=== PATIENT | female | born 1980 | race Caucasian/White ===

== ENCOUNTER 2020-09-20 10:19 | Outpatient (CLI) | payer OTHER | END 2020-09-20 10:21 | disposition home or self-care (01) | LOC: RX STUDY 10:19 | PROVIDERS: ATTEND Obstetrics & Gynecology Reproductive Endocrinology | DX: Q50.6 Other congenital malformations of fallopian tube and broad ligament (principal); N93.9 Abnormal uterine and vaginal bleeding, unspecified; N91.2 Amenorrhea, unspecified ==

== ENCOUNTER 2023-04-29 10:04 | Outpatient (CLI) | payer OTHER | END 2023-04-29 10:33 | disposition home or self-care (01) | LOC: NST 10:04 | PROVIDERS: ATTEND Obstetrics & Gynecology Maternal & Fetal Medicine | DX: Z34.83 Encounter for supervision of other normal pregnancy, third trimester (principal) ==

== ENCOUNTER 2023-06-08 09:41 | Outpatient (CLI) | payer OTHER ==
[2023-06-08] MEDS ORDERED: CHILDREN'S ASPI81 MG PO (14:09)
[2023-06-08] MEDS ORDERED: OBTREX DHA COM1 EACH PO (14:09)
[2023-06-08] MEDS ORDERED: FOLIC ACID0.8 M1 PO (14:10)
[2023-06-08] MEDS ORDERED: OMEGA-31000 MG PO (14:10)
[2023-06-08] MEDS ORDERED: MAGNESIUM250 MG PO (14:10)
== END 2023-06-08 11:30 | disposition home or self-care (01) ==
LOC: NST 09:41
PROVIDERS: ATTEND Obstetrics & Gynecology Maternal & Fetal Medicine
DX: Z34.83 Encounter for supervision of other normal pregnancy, third trimester (principal)

== ENCOUNTER 2023-06-08 12:58 | Inpatient (IN) | payer OTHER ==
[~2023-06-08] VITALS: Ht 177.8 cm; Wt 101.6 kg
[2023-06-08 14:01] LABS: HEMATOCRIT 36.5 % (36.0-45.00); MEAN CELL VOLUME 87.3 fL (80.00-100.00); MEAN CORPUSCULAR HEMOGLOBIN 28.7 pg (27.00-32.0); MEAN CORPUSCULAR HGB CONC 32.9 g/dl (32.0-36.0); PLATELET COUNT 224 K/uL (150-450); RED BLOOD COUNT 4.18 M/uL (4.00-6.00); RED CELL DISTRIBUTION WIDTH 13.7 % (11.5-14.5)
[2023-06-08] MEDS ORDERED: CHILDREN'S ASPI81 MG PO (14:09)
[2023-06-08] MEDS ORDERED: OBTREX DHA COM1 EACH PO (14:09)
[2023-06-08] MEDS ORDERED: FOLIC ACID0.8 M1 PO (14:10)
[2023-06-08] MEDS ORDERED: OMEGA-31000 MG PO (14:10)
[2023-06-08] MEDS ORDERED: MAGNESIUM250 MG PO (14:10)
[2023-06-08 14:21] LABS: INR 0.98; PARTIAL THROMBOPLASTIN TIME 22.8 SECONDS (22.0-34.0); PROTHROMBIN TIME 10.3 SECONDS (9.0-11.5)
[2023-06-08 15:13] LABS: ALBUMIN 3.1 gm/dL (3.4-5.0); BILIRUBIN TOTAL 0.31 mg/dL (0.3-1.2); CALCIUM 9.2 mg/dL (8.5-10.1); CREATININE SERUM 0.64 mg/dL (0.55-1.02); GFR 100.81; GLOBULINA 3.5 G/DL (2.4-3.5); POTASSIUM 4.06 mEq/L (3.5-5.1); TOTAL PROTEIN 6.6 gm/dL (6.4-8.2)
[2023-06-16 10:47] LABS: ABG PH 7.287 (7.35-7.45); ABG PO2 22.2 mmHg (80-100); ABG pCO2 48.6 mmHg (35-45)
[2023-06-16 10:48] LABS: BASE EXCESS -4.2 mmol/l; BICARBONATE 22.7 mmol/l (23-25); SaO2 29.4 %; Tco2 24.2 mmol/l; o2 21 %
[2023-06-16 17:16] LABS: HEMATOCRIT 29.9 % (36.0-45.00); MEAN CELL VOLUME 87.5 fL (80.00-100.00); MEAN CORPUSCULAR HEMOGLOBIN 29.2 pg (27.00-32.0); MEAN CORPUSCULAR HGB CONC 33.4 g/dl (32.0-36.0); PLATELET COUNT 177 K/uL (150-450); RED BLOOD COUNT 3.41 M/uL (4.00-6.00)
[2023-06-17 07:02] LABS: HEMOGLOBIN 11.3 g/dL (12.0-15.00); MEAN CELL VOLUME 87.8 fL (80.00-100.00); MEAN CORPUSCULAR HEMOGLOBIN 29.1 pg (27.00-32.0); MEAN CORPUSCULAR HGB CONC 33.2 g/dl (32.0-36.0); PLATELET COUNT 201 K/uL (150-450); RED BLOOD COUNT 3.88 M/uL (4.00-6.00); RED CELL DISTRIBUTION WIDTH 14.3 % (11.5-14.5)
== END 2023-06-19 13:03 | disposition home or self-care (01) | DRG 786 ==
LOC: O/R 06-16 06:04 → OB/GYN 06-16 08:30
PROVIDERS: ADMIT Obstetrics & Gynecology Maternal & Fetal Medicine; ATTEND Obstetrics & Gynecology Maternal & Fetal Medicine
PROC: 0BB Respiratory System, Excision (ICD-10-PCS; 2023-06-16)
PROC: 0DNW0ZZ Release Peritoneum, Open Approach (ICD-10-PCS; 2023-06-16)
PROC: 4A1HXCZ Monitoring of Products of Conception, Cardiac Rate, External Approach (ICD-10-PCS; 2023-06-16)
PROC: 10D00Z1 Extraction of Products of Conception, Low, Open Approach (ICD-10-PCS; principal; 2023-06-16 08:30)
DX: O34.13 Maternal care for benign tumor of corpus uteri, third trimester (principal); O60.14X0 Preterm labor third trimester with preterm delivery third trimester, not applicable or unspecified; D25.9 Leiomyoma of uterus, unspecified; Z3A.36 36 weeks gestation of pregnancy; N73.6 Female pelvic peritoneal adhesions (postinfective); O99.892 Other specified diseases and conditions complicating childbirth; Z37.0 Single live birth; Z20.822 Contact with and (suspected) exposure to COVID-19